=== PATIENT | female | born 1965 | race Caucasian/White ===

== ENCOUNTER 2018-05-29 05:50 | Day surgery (SDC) | payer OTHER ==
[2018-05-28 10:26] LABS: BASOPHILS 0.4 % (0-2); EOSINOPHILS 2.1 % (0-7); HEMOGLOBIN 14.9 g/dL (12-16); LYMPHOCYTES 32.7 % (15-50); MCH 31.1 pg (26.0-34.0); MCHC 33.9 g/dL (31.0-37.0); MCV 91.9 fL (80.0-100.0); MEAN PLATELET VOLUME 9.9 fL (7.4-10.4); MONOCYTES 8.1 % (2-11); NEUTROPHILS 56.7 % (40-80); PLATELET COUNT 268 10x3/uL (130-400); RBC 4.79 10x6/uL (4.00-5.40); RDW 13.6 % (11.5-14.5); WBC 5.3 10x3/uL (4.8-10.8)
[~2018-05-29] VITALS: Ht 167.6 cm; Wt 111.6 kg
[~2018-05-29 05:50] MED LIST: CLOBETASOL PROP15 GM TP; ESTRACE 0.5 MG0.5 MG PO; OMEPRAZOLE40 MG PO
[2018-05-29] MEDS ORDERED: FEXOFENADINE HC60 MG PO (06:12)
[2018-05-29] MEDS ORDERED: VITAMIN D5000 UNIT PO (06:12)
[2018-05-29] MEDS ORDERED: DULCOLAX5 MG PO (06:13)
[2018-05-29] MEDS ORDERED: COLACE100 MG PO (06:13)
[2018-05-29 06:14] VITALS: BP 114/65; Ht 167.6 cm; Wt 111.6 kg
[2018-05-29] MEDS ORDERED: HYDROCODON-ACE1 EAC7 PO (09:11)
== END 2018-05-29 11:19 | disposition home or self-care (01) ==
LOC: D.OPS 05:50 → D.PAN 08:00 → D.OPS 11:19
PROVIDERS: Anesthesiology
DX: K80.20 Calculus of gallbladder without cholecystitis without obstruction (principal); K21.9 Gastro-esophageal reflux disease without esophagitis; Z01.812 Encounter for preprocedural laboratory examination

== ENCOUNTER → 2018-07-02 18:19 | Outpatient (CLI) | payer OTHER ==
[2018-05-29 06:14] VITALS: BMI 39.8
[~2018-07-02 18:19] MED LIST changes: +COLACE100 MG PO; +DULCOLAX5 MG PO; +FEXOFENADINE HC60 MG PO; +HYDROCODON-ACE1 EAC7 PO; +VITAMIN D5000 UNIT PO
== END | disposition home or self-care (01) ==
LOC: D.LABREF 18:19
DX: L72.0 Epidermal cyst (principal)

== ENCOUNTER 2018-08-14 05:35 | Day surgery (SDC) | payer OTHER ==
[2018-08-13 08:45] LABS: HEMATOCRIT 42.3 % (36.0-48.0); HEMOGLOBIN 14.2 g/dL (12-16); MCH 31.2 pg (26.0-34.0); MCHC 33.6 g/dL (31.0-37.0); MEAN PLATELET VOLUME 9.9 fL (7.4-10.4); RBC 4.55 10x6/uL (4.00-5.40); RDW 13.5 % (11.5-14.5); WBC 5.8 10x3/uL (4.8-10.8)
[~2018-08-14] VITALS: Ht 167.6 cm; Wt 111.1 kg
[2018-08-14 07:09] VITALS: BP 128/85; Ht 167.6 cm; Wt 111.1 kg
[2018-08-14] MEDS ORDERED: MIRALAX17 GM PO (09:05)
[2018-08-14] MEDS ORDERED: VALIUM5 MG PO (09:05)
== END 2018-08-14 11:00 | disposition home or self-care (01) ==
LOC: D.OPS 05:35 → D.PAN 08:00 → D.OPS 11:00
PROVIDERS: Anesthesiology
DX: K64.8 Other hemorrhoids (principal); Z01.812 Encounter for preprocedural laboratory examination